=== PATIENT | female | born 1965 | race Caucasian/White ===

== ENCOUNTER 2017-12-03 08:00 | Outpatient (CLI) | payer OTHER ==
[2011-11-28 12:34] VITALS: BMI 19.1
== END 2017-12-03 09:00 | disposition home or self-care (01) ==
LOC: D.MAMMO 08:00
DX: Z12.31 Encounter for screening mammogram for malignant neoplasm of breast (principal)

== ENCOUNTER 2018-12-04 08:00 | Outpatient (CLI) | payer OTHER ==
[2011-11-28 12:34] VITALS: BMI 19.1
== END 2018-12-04 23:59 | disposition home or self-care (01) ==
LOC: D.MAMMO 08:00
PROVIDERS: ATTEND Family Medicine
DX: Z12.31 Encounter for screening mammogram for malignant neoplasm of breast (principal)

== ENCOUNTER → 2020-08-07 12:09 | Outpatient (CLI) | payer OTHER ==
[2011-11-28 12:34] VITALS: BMI 19.1
== END ==
LOC: D.MAMMO 10:00
PROVIDERS: ATTEND Family Medicine
DX: Z12.31 Encounter for screening mammogram for malignant neoplasm of breast (principal)